=== PATIENT | female | born 1950 | race Caucasian/White ===

== ENCOUNTER 2023-06-19 07:48 | Inpatient (IN) | payer MEDICARE, BC ==
[2023-06-15 14:00] VITALS: BMI 31.2
[2023-06-19 09:20] LABS: #Basophils 0.1 thou/uL (0.0-0.2); #Eosinphils 0.3 thou/uL (0.0-0.7); #Monocytes 0.6 thou/uL (0.11-0.59); #Neutrophils 3.2 thou/uL (1.40-6.50); %Basophils 0.7 % (0.0-1.0); %Eosinophils 3.7 % (0.0-10.0); %Lymphocytes 41.1 % (21.0-51.0); %Monocytes 8.5 % (0.0-10.0); %Neutrophils 45.6 % (42.0-75.0); Hemoglobin 13.9 g/dL (12.0-16.0); Mean Corpuscular HGB CONC 32.3 g/dL (32.0-36.0); Mean Corpuscular Hemoglobin 28.9 pg (27.0-31.0); Mean Corpuscular Volume 89.4 fl (78.0-98.0); Mean Platelet Volume 10.1 fL (7.4-10.4); Platelet Count 262 10x3/uL (130-400); Red Blood Cell (RBC) Count 4.81 mill/uL (4.20-5.40)
[2023-06-19 09:37] LABS: INR-International Normal Ratio 0.9; PTT 23.1 sec (22.9-36.1)
[2023-06-19] MEDS ORDERED: Bupivacaine HCl 0.5%/Epinephrine 1:200,000/PF 30 ml Vial ONE (09:42)
[2023-06-19] MEDS ORDERED: Thrombin 5000 UNITS/5 ML VIAL ONE (09:42)
[2023-06-19] MEDS ORDERED: Vancomycin 1 GM VIAL ONE (09:42)
[2023-06-19] MEDS ORDERED: Fentanyl 250 MCG/5 ML VIAL ONE (11:07)
[2023-06-19] MEDS ORDERED: CEFAZOLIN 2 GM VIAL ONE (11:11)
[2023-06-19] MEDS ORDERED: Sodium Chloride 0.9% 100 ML ONE (11:11)
[2023-06-19] MEDS ORDERED: NEOSTIGMINE 3 MG/3 ML SYR 3 MG/3 ML SYRINGE ONE (11:27)
[2023-06-19] MEDS ORDERED: Dexamethasone 20 MG/5 ML VIAL ONE (11:27)
[2023-06-19] MEDS ORDERED: Rocuronium Bromide 10 MG/ML (10ML VIAL) ONE (11:27)
[2023-06-19] MEDS ORDERED: Ondansetron PF 4 MG/2 ML Vial ONE (11:27)
[2023-06-19] MEDS ORDERED: ePHEDrine Sulfate 50 MG/10 ML VIAL ONE (11:27)
[2023-06-19] MEDS ORDERED: Glycopyrrolate 0.2 MG/ML 5 ML SYRINGE ONE (11:27)
[2023-06-19] MEDS ORDERED: Lidocaine 1% PF 5 ML VIAL ONE (11:27)
[2023-06-19] MEDS ORDERED: PROPOFOL 200 MG/20 ML VIAL ONE (11:27)
[2023-06-19] MEDS ORDERED: Albuterol HFA (OR) 200 PUFF INH ONE (11:27)
[2023-06-19] MEDS ORDERED: PACU-Morphine 4MG/ML VIAL SLOW IVP PRN (13:20)
[2023-06-19] MEDS ORDERED: HYDROmorphone 2 MG/ML VIAL SLOW IVP PRN (13:20)
[2023-06-19] MEDS ORDERED: Ondansetron HCl/PF 4 MG/2 ML Vial IVP PRN (13:20)
[2023-06-19] MEDS ORDERED: Promethazine HCl 25 MG/ML VIAL IM PRN (13:20)
[2023-06-19] MEDS ORDERED: Morphine Sulfate 2 MG/ML SYRINGE SLOW IVP PRN (13:20)
[2023-06-19] MEDS ORDERED: fentaNYL 50 mcg/mL 1 mL Vial ONE (13:35)
[2023-06-19] MEDS ORDERED: HYDROcodone/Acetaminophen 5/325 mg Tablet ONE (14:16)
== END 2023-06-19 15:29 | disposition home or self-care (01) | DRG 518 ==
LOC: SURG A 08:06 → EDSTATUS 08:37
PROVIDERS: ADMIT Neurological Surgery; ATTEND Neurological Surgery
PROC: 00BY0ZZ Excision of Lumbar Spinal Cord, Open Approach (ICD-10-PCS; principal; 2023-06-19)
PROC: 0SP004Z Removal of Internal Fixation Device from Lumbar Vertebral Joint, Open Approach (ICD-10-PCS; 2023-06-19)
PROC: 00NY0ZZ Release Lumbar Spinal Cord, Open Approach (ICD-10-PCS; 2023-06-19)
DX: M48.062 Spinal stenosis, lumbar region with neurogenic claudication (principal); G06.1 Intraspinal abscess and granuloma; E78.00 Pure hypercholesterolemia, unspecified; F32.A Depression, unspecified; E11.9 Type 2 diabetes mellitus without complications; I10 Essential (primary) hypertension; Z96.652 Presence of left artificial knee joint; Z96.611 Presence of right artificial shoulder joint; Z90.710 Acquired absence of both cervix and uterus; Z79.01 Long term (current) use of anticoagulants; Z98.51 Tubal ligation status; Z98.890 Other specified postprocedural states; Z82.49 Family history of ischemic heart disease and other diseases of the circulatory system; Z79.890 Hormone replacement therapy; Z79.899 Other long term (current) drug therapy
CPT/HCPCS: 85025; 85610; 85730; J1100; J2405; J2704; J3010; J3370; J3490